=== PATIENT | male | born 1995 ===

== ENCOUNTER 2020-02-05 20:43 | Emergency (ER) | payer SELFPAY ==
--- NOTE | 2020-02-05 20:59 | ER Document Report ---
ED Medical Screen (RME) - General Chief Complaint: Low Back Pain Stated Complaint: LOWER BACK INJURY Time Seen by Provider: 02/05/20 20:45 Notes: Patient presents complaining of low back pain. Patient denies any injury. Patient reports some dysuria. No fever nausea or vomiting. I have greeted and performed a rapid initial assessment of this patient. A comprehensive ED assessment and evaluation of the patient, analysis of test results and completion of the medical decision making process will be conducted by additional ED providers. Physical Exam - Back Back: Tender - Number paraspinal tenderness. No: CVA tenderness
--- NOTE | 2020-02-05 22:15 | RADIOLOGY REPORT (SQ) ---
INDICATION: low back pain. TECHNIQUE: 5 view(s) of the lumbar spine. Both obliques COMPARISON: None FINDINGS: No evidence of acute displaced fracture. Shallow levoconvex rotary scoliosis. No anteroposterior subluxation. The facets and intervertebral joints are within normal limits for age. Vertebral body heights are well-maintained. Surrounding soft tissues are unremarkable. IMPRESSION: No evidence of acute displaced fracture of the lumbar spine. Shallow scoliosis
[2020-02-05 23:06] LABS: APPEARANCE,URINE CLEAR; BILIRUBIN,URINE NEGATIVE (NEGATIVE); COLOR,URINE YELLOW; GLUCOSE, URINE NEGATIVE (NEGATIVE); KETONES,URINE NEGATIVE (NEGATIVE); LEUKOCYTE ESTERASE,URINE NEGATIVE (NEGATIVE); NITRITE,URINE NEGATIVE (NEGATIVE); PROTEIN,URINE NEGATIVE (NEGATIVE); URINE SPECIFIC GRAVITY 1.013; UROBILINOGEN,URINE NEGATIVE mg/dL (<2.0)
[2020-02-05 23:16] LABS: ANION GAP 12 (5-19); BLOOD UREA NITROGEN 8 mg/dL (7-20); CARBON DIOXIDE 28 mmol/L (22-30); CHLORIDE 102 mmol/L (98-107); GLUCOSE 94 mg/dL (75-110); POTASSIUM 4.2 mmol/L (3.6-5.0)
[2020-02-05 23:26] LABS: ABSOLUTE EOSINOPHILS # (AUTO) 0.1 10^3/uL (0.0-0.6); ABSOLUTE LYMPHOCYTES (AUTO) 0.9 10^3/uL (0.5-4.7); ABSOLUTE MONOCYTES (AUTO) 0.7 10^3/uL (0.1-1.4); ABSOLUTE NEUT (AUTO) 4.1 10^3/uL (1.7-8.2); BASOPHILS % (AUTO) 0.5 % (0-2); EOSINOPHILS % (AUTO) 1.5 % (0-6); HEMATOCRIT 44.3 % (37.9-51.0); HEMOGLOBIN 15.1 g/dL (13.5-17.0); MEAN CORPUSCULAR HEMOGLOBIN 29.1 pg (27.0-33.4); MEAN CORPUSCULAR VOLUME 86 fl (80-97); MONOCYTES % (AUTO) 11.5 % (3-13); PLATELET COUNT 252 10^3/uL (150-450); RED BLOOD COUNT 5.18 10^6/uL (4.35-5.55); RED CELL DISTRIBUTION WIDTH 13.4 % (11.5-14.0); SEGMENTED NEUTROPHILS % (AUTO) 71.5 % (42-78); TOTAL CELLS COUNTED % (AUTO) 100 %; WHITE BLOOD COUNT 5.8 10^3/uL (4.0-10.5)
[2020-02-06 00:34] LABS: CHLAM PCR NOT DETECTED (NOT DETECT)
--- NOTE | 2020-02-06 04:19 | ER Document Report ---
ED General - General Chief Complaint: Back Pain Stated Complaint: LOWER BACK INJURY Time Seen by Provider: 02/05/20 20:45 Notes: Patient is a 24-year-old male that comes emergency department for chief complaint of feeling chills and feeling feverish. 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 He denies fall, impact injury, focal numbness or weakness, incontinence. He denies ever using IV drugs. Patient denies abdominal pain. When asked if he has any discharge or dysuria he denies discharge but he reports that he has had pain when urinating in the past, he does not have this now. Patient admits to mild sore throat and occasional mild cough that have started up over the past day or so with the fever and chills. Patient was found to have a fever of 100.8 on arrival. Patient does not have any obvious sick exposures but he does work at a shop. Family is at bedside. - Related Data Allergies/Adverse Reactions: No Known Allergies Allergy (Unverified 02/05/20 21:05) Past Medical History - General Information source: Patient, Relative - Social History Smoking Status: Never Smoker Frequency of alcohol use: None Drug Abuse: None Lives with: Family Family History: Reviewed & Not Pertinent - Medical History Medical History: Negative Surgical Hx: Negative - Immunizations Immunizations up to date: Yes Hx Diphtheria, Pertussis, Tetanus Vaccination: Yes Review of Systems - Review of Systems Constitutional: See HPI EENT: See HPI Cardiovascular: No symptoms reported Respiratory: See HPI Gastrointestinal: No symptoms reported Genitourinary: No symptoms reported Male Genitourinary: No symptoms reported Musculoskeletal: See HPI Skin: No symptoms reported Hematologic/Lymphatic: No symptoms reported Neurological/Psychological: No symptoms reported Physical Exam - Vital signs Vitals: Temp Pulse Resp BP Pulse Ox 100.8 F H 83 18 131/78 H 100 02/05/20 21:04 02/05/20 21:04 02/05/20 21:04 02/05/20 21:04 02/05/20 21:04 - Notes Notes: GENERAL: Alert, interacts well. No acute distress. Smiling, talkative, well- appearing HEAD: Normocephalic, atraumatic. EYES: Pupils equal, round, and reactive to light. Extraocular movements intact. ENT: Oral mucosa moist, tongue midline. Oropharynx unremarkable. Airway patent. Nares patent, sinuses non-tender, ear canals unremarkable, TM's intact. NECK: Full range of motion. Supple. Trachea midline. No lymphadenopathy. No nuchal rigidity. LUNGS: Clear to auscultation bilaterally, no wheezes, rales, or rhonchi. No respiratory distress. Non-tender chest wall. HEART: Regular rate and rhythm. No murmur ABDOMEN: Soft, non-tender. Non-distended. EXTREMITIES: Moves all 4 extremities spontaneously. No edema, normal radial and dorsalis pedis pulses bilaterally. No cyanosis. BACK: Tenderness along the bilateral paralumbar musculature, no severe tenderness, no cervical, thoracic, lumbar midline tenderness. No signs of trauma. No saddle anesthesia, normal distal neurovascular exam. Moves all extremities in full range of motion. Ambulates without difficulty. Performed position changes without difficulty. NEUROLOGICAL: Alert and oriented x3. Normal speech. Cranial nerves II through XII grossly intact. Strength 5/5 in all extremities. PSYCH: Normal affect, normal mood. SKIN: Warm, dry, normal turgor. No rashes or lesions noted. Course - Re-evaluation Re-evalutation: [id number] speaks good Yi, patient speaks poor Yi but he wants him to interpret for him. Initially patient was given vague history that was all- inclusive, however when he gave specific history he does report that his back pain is not new but worse since he started having fever and chills, he has had some mild congestion and cough symptoms. Symptoms started over the past day. N o hypoxia, tachycardia, patient looks great on my exam, clear lungs, soft abdomen, unremarkable ENT exam. I did review work-up including CBC, chemistry, urinalysis, gonorrhea chlamydia testing, these were all negative. Discussed options with patient and family, decision was made to proceed with COVID-19 testing, I do not feel a chest x-ray is indicated at this time based on his new symptoms and benign evaluation. In regards to his back pain this is very reproducible musculoskeletal pain reportedly from lifting, no history of IV drug abuse, no neurological symptoms, patient ambulates without difficulty. Discussed quarantine, expectations, follow-up, return precautions. Patient states understanding and agreement. Stable and well-appearing at time of discharge. - Vital Signs Vital signs: Temp Pulse Resp BP Pulse Ox 98.4 F 98 14 120/74 98 02/06/20 04:42 02/06/20 04:42 02/06/20 04:42 02/06/20 04:42 02/06/20 04:42 - Laboratory Result Diagrams: 02/05/20 22:40 02/05/20 22:40 Discharge - Discharge Clinical Impression: Body aches, Person under investigation for COVID-19 Fever Qualifiers: Fever type: unspecified Qualified Code(s): R50.9 - Fever, unspecified Lower back pain Qualifiers: Chronicity: acute Back pain laterality: bilateral Sciatica presence: without sciatica Qualified Code(s): M54.5 - Low back pain Condition: Stable Disposition: HOME, SELF-CARE Additional Instructions: Your blood and urine tests are normal. Based on your symptoms and your fever that you have a virus, you have been tested for COVID-19, please quarantine while you are awaiting your test results, you will be contacted for your results. See additional instructions below. For your lower back pain and strain I recommend the ibuprofen prescribed, this will also help with your fever/chills. Also take the muscle relaxer given if needed. Apply heat to your back and rest. Return if you worsen including developing numbness, vomiting, severe worsening pain, difficulty breathing, or any other concerning symptoms As a person under investigation for COVID-19, the [place] Department of Health and Human Services (division on public health) advises you to adhere to the following guidance until your test results are reported to you. If your test result is positive, you will receive additional information from your provider and your local health department at that time. Remain at home until you are cleared by the health provider or public health authorities. Keep a log of visitors to your home, notify any visitors to your home of your isolation status. If you plan to move to a new address or leave the [facility], notify the local health department in your County. Call your Doctor or seek care if you have an urgent medical need. Before seeking medical care, call him to get instructions from the provider before arriving at the medical office, clinic, or hospital. Notify them that you are being tested for the virus (COVID-19) so that arrangements can be made, as necessary, to prevent transmission to others in the healthcare setting. Next, notify the local health department in your county. If a medical emergency arises and you need to call 911, inform the first responders that you are being tested for the virus that causes COVID-19. Next, notify the local health department in your county. Prescriptions: Ibuprofen [Motrin 600 mg Tablet] 600 mg PO Q6HP PRN #30 tablet PRN Reason: Methocarbamol [Robaxin-750] 750 mg PO QID PRN #20 tablet PRN Reason: Forms: Return to Work
[2020-02-06 04:43] VITALS: BP 120/74
== END 2020-02-06 04:42 | disposition home or self-care (01) ==
LOC: ER 20:43
DX: U07.1 COVID-19 (principal); M54.5 Low back pain; M41.9 Scoliosis, unspecified
CPT/HCPCS: 99284; 36415; 87040; 85025; 87635; 80048; 81001; 87491; 87591; 72110; C9803